=== PATIENT | male | born 1965 | race Caucasian/White ===

== ENCOUNTER → 2017-02-01 | Outpatient (CLI) | payer OTHER ==
--- NOTE | 2017-02-01 10:13 | RAD ---
Chest, 2 views, 02/01/2017: History: COPD, smoker The heart size and pulmonary vascularity are normal. There is minimal linear scarring and/or atelectasis in the lung bases. No pulmonary consolidation is seen. There is no evidence of pleural fluid. A surgical plate and screws is noted in the lower cervical spine. IMPRESSION: Minimal bibasilar linear atelectasis and/or scarring.
--- NOTE | 2017-02-01 10:15 | RAD ---
Lumbar spine, 3 views, 02/01/2017: History: Low back pain, ruptured disc The lumbar vertebral heights are well-maintained. The intervertebral disc spaces are fairly well-preserved. There are mild scattered marginal spurs. There are mild degenerative changes involving the facet joints in the lower lumbar spine. Aortoiliac calcific plaquing is present. IMPRESSION: 1. Mild scattered degenerative changes. 2. No acute abnormality is detected.
== END | disposition home or self-care (01) ==
LOC: PF 07:40
PROVIDERS: ATTEND Family Medicine Adolescent Medicine
DX: M47.896 Other spondylosis, lumbar region (principal); J44.9 Chronic obstructive pulmonary disease, unspecified
CPT/HCPCS: 71020; 72100; 94060